=== PATIENT | female | born 1990 | race Caucasian/White ===

== ENCOUNTER 2020-07-20 15:01 | Emergency (ER) | payer MEDICAID ==
[~2020-07-20] VITALS: Ht 157.5 cm; Wt 67.7 kg
[2020-07-20 15:11] VITALS: TEMP 98.3
[2020-07-20 16:10] VITALS: BP 146/82; PULSE 118
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
== END 2020-07-20 17:30 | disposition home or self-care (01) ==
LOC: COL.ER 15:01
DX: F15.10 Other stimulant abuse, uncomplicated (principal); R00.0 Tachycardia, unspecified; Z59.0 Homelessness

== ENCOUNTER 2020-11-26 23:28 | Emergency (ER) | payer MEDICAID ==
[~2020-11-26] VITALS: Ht 149.9 cm; Wt 72.7 kg
[2020-11-27 00:23] LABS: COLLECTION METHOD CLEAN CATCH
[2020-11-27 00:32] LABS: BASO # 0.1 (0.0-0.2); BASO % 0.5 % (0.0-2.0); EOS # 0.1 (0.0-0.7); EOS % 0.7 % (0-4.0); GRAN # 7.9 (1.4-6.5); GRAN % 63.8 % (42.2-75.2); HEMATOCRIT 40.1 % (37.0-47.0); HEMOGLOBIN 13.2 g/dl (12.5-16.0); LYMPH # 3.3 (1.2-3.4); MEAN CELL VOLUME 91 fl (80.0-100.0); MEAN CORPUSCULAR HEMOGLOBIN 30 pg (27.0-31.0); MEAN CORPUSCULAR HGB CONC 33 g/dl (33.0-37.0); MEAN PLATELET VOLUME 9.4 fl (7.4-10.4); MONO % 7.7 % (1.7-9.3); PLATELET COUNT 429 K/mm3 (130-400); RED BLOOD COUNT 4.42 M/mm3 (4.10-5.30); REDCELL DISTRIBUTION WIDTH-CV 13.2 % (11.5-14.5)
[2020-11-27 00:36] LABS: ALANINE AMINOTRANSFERASE 24 U/L (4-34); ALBUMIN 5.1 gm/dL (3.5-5.0); ALKALINE PHOSPHATASE 59 U/L (50-136); ANION GAP 12 mmol/L (7-16); AST,SGOT 33 U/L (15-37); BILIRUBIN,TOTAL 0.2 mg/dL (0.0-1.0); BLOOD UREA NITROGEN 10 mg/dL (7-17); CALCIUM 9.3 mg/dL (8.4-10.2); CARBON DIOXIDE 25 mmol/L (22-30); CHLORIDE 101 mmol/L (98-107); CREATININE, serum 0.73 (0.52-1.25); GLUCOSE 98 mg/dL (74-106); SODIUM 139 mmol/L (137-145)
[2020-11-27 00:38] LABS: ACETAMINOPHEN < 10 ug/mL (10-30); ALCOHOL(ethanol),MEDICAL < 10 mg/dL; POTASSIUM 2.9 mmol/L (3.4-5.0); SALICYLATE < 1.0 mg/dL
[2020-11-27 00:39] LABS: MUCOUS Present /lpf; PH 5 (5-8); URINE APPEARANCE Hazy; URINE BACTERIA None Seen /hpf; URINE BILIRUBIN Negative (NEGATIVE); URINE BLOOD Negative (NEGATIVE); URINE COLOR Yellow; URINE GLUCOSE Negative (NEGATIVE); URINE KETONE Trace (NEGATIVE); URINE LEUKOCYTE ESTERASE Trace (NEGATIVE); URINE NITRATE Negative (NEGATIVE); URINE PROTEIN(semi-quant) Negative (NEGATIVE); URINE RBC 0-2 /hpf
[2020-11-27 00:56] LABS: TRICYCLIC ANTIDEPRESS URINE NEGATIVE
[2020-11-27 12:05] VITALS: TEMP 97.7
[2020-11-27 15:50] VITALS: BP 112/61; PULSE 78
== END 2020-11-27 15:50 ==
LOC: COL.ER 23:28
PROVIDERS: Nurse Practitioner Primary Care
DX: F91.9 Conduct disorder, unspecified (principal); E87.6 Hypokalemia; F15.10 Other stimulant abuse, uncomplicated; F17.200 Nicotine dependence, unspecified, uncomplicated; Z59.0 Homelessness
CPT/HCPCS: J1630